=== PATIENT | male | born 1975 | race Caucasian/White ===

== ENCOUNTER 2017-09-07 18:49 | Emergency (ER) | payer OTHER ==
[~2017-09-07] VITALS: Ht 188 cm; Wt 109.0 kg
[2017-09-07] MEDS ORDERED: ACETAMINOPHEN 325 MG TABLET PO ONE (20:00)
[2017-09-07] MEDS ORDERED: PERTUSS(ACELL),DIPH,TET VAC/PF 0.5 ML VIAL IM ONE (20:15)
[2017-09-07] MEDS ORDERED: BACITRACIN 0.9 GM PACKET OINTMENT TP ONE (21:30)
[2017-09-07 21:33] VITALS: BP 142/87
== END 2017-09-07 21:35 | disposition home or self-care (01) ==
LOC: EMS 18:49
DX: S01.01XA Laceration without foreign body of scalp, initial encounter (principal); F17.210 Nicotine dependence, cigarettes, uncomplicated; W22.8XXA Striking against or struck by other objects, initial encounter; Y93.89 Activity, other specified; Y92.89 Other specified places as the place of occurrence of the external cause; Y99.8 Other external cause status
CPT/HCPCS: 12001; 90471; 90715; 99283

== ENCOUNTER 2019-05-08 08:26 | Emergency (ER) | payer OTHER ==
[~2019-05-08] VITALS: Ht 193 cm; Wt 109.0 kg
[2019-05-08] MEDS ORDERED: DIAZEPAM 5 MG/ML 2 ML SYRINGE IM ONE (09:30)
[2019-05-08] MEDS ORDERED: KETOROLAC TROMETHAMINE 30 MG/ML VIAL IM ONE (09:30)
[2019-05-08 10:49] LABS: BASOPHILS % (AUTO) 0.5 % (0.0-2.0); EOSINOPHILS % (AUTO) 0.2 % (1.0-6.0); HEMATOCRIT 44.2 % (41-53); LYMPHOCYTES # (AUTO) 0.7 K/uL (1.0-4.8); LYMPHOCYTES % (AUTO) 6.1 % (22.0-44.0); MEAN CORPUSCULAR HEMOGLOBIN 30.2 pg (26.0-34.0); MEAN CORPUSCULAR HGB CONC 33.9 G/dL (31.0-37.0); MEAN CORPUSCULAR VOLUME 89 fL (80-100); MONOCYTES # (AUTO) 0.7 K/uL (0.1-1.0); MONOCYTES % (AUTO) 5.7 % (2.0-9.0); NEUTROPHILS # (AUTO) 10.2 K/uL (1.8-7.7); PLATELET COUNT (AUTO) 178 K/uL (150-450); RED BLOOD CELL COUNT(AUTO) 4.96 MIL/uL (4.50-5.90); RED CELL DISTRIBUTION WIDTH 13.9 % (11.5-14.5)
[2019-05-08 10:52] LABS: NEUTROPHILS % (AUTO) 87.5 % (40.0-70.0)
[2019-05-08 11:15] LABS: B-TYPE NATRIURETIC PEPTIDE 13 pg/mL (0-100)
[2019-05-08 11:25] LABS: D-DIMER 2.17 mg/L FEU (0.00-0.50); PROTHROMBIN TIME 10.6 SEC (9.4-11.6)
[2019-05-08 11:27] LABS: ALANINE AMINOTRANSFERASE 18 U/L (12-78); ALBUMIN 4.1 g/dL (3.4-5.0); ALKALINE PHOSPHATASE 85 U/L (46-116); ANION GAP 7 mmol/L (8-16); ASPARTATE AMINOTRANSFERASE 26 U/L (15-37); BILIRUBIN,TOTAL 0.9 mg/dL (0.1-1.0); CALCIUM, TOTAL 8.9 mg/dL (8.8-10.5); CARBON DIOXIDE 29 mmol/L (22-29); CHLORIDE 103 mmol/L (98-107); CREATINE KINASE, TOTAL ONLY 236 U/L (39-308); CREATININE 1.27 mg/dL (0.60-1.30); GLOMERULAR FILTR. RATE CALC > 60 mL/min (>60); GLUCOSE,RANDOM 130 mg/dL (70-110); POTASSIUM 2.7 mmol/L (3.5-5.1); SODIUM SERUM 139 mmol/L (136-145); TOTAL PROTEIN, SERUM 7.2 g/dL (6.4-8.2); UREA NITROGEN, BLOOD 12 mg/dL (7-18)
[2019-05-08] MEDS ORDERED: POTASSIUM CHL 10 MEQ/WATER 50 ML IV PRN (11:45)
[2019-05-08] MEDS ORDERED: SODIUM CHLORIDE 0.9% 100 ML ONE (12:00)
[2019-05-08] MEDS ORDERED: IOVERSOL 350 MG/ML 100 ML VIAL ONE (12:01)
[2019-05-08] MEDS ORDERED: MORPHINE SULFATE 4 MG/ML SYRINGE IVP ONE (13:15)
[2019-05-08] MEDS ORDERED: ESMOLOL HCL 2500 MG/NACL 250 ML IV PRN (13:15)
[2019-05-08] MEDS ORDERED: DEXTROSE 5% IV PRN (13:45)
[2019-05-08] MEDS ORDERED: NITROPRUSSIDE SODIUM IV PRN (13:45)
[2019-05-08] MEDS ORDERED: WATER IV PRN (13:45)
[2019-05-08] MEDS ORDERED: SODIUM CHLORIDE 0.9% 250 ML IV ONE (13:56)
[2019-05-08 15:23] VITALS: BP 112/66
== END 2019-05-08 16:44 | disposition short-term general hospital (02) ==
LOC: EMS 08:29
DX: I71.02 Dissection of abdominal aorta (principal); I71.01 Dissection of thoracic aorta; E87.6 Hypokalemia; R07.9 Chest pain, unspecified; M54.5 Low back pain; I10 Essential (primary) hypertension; F17.210 Nicotine dependence, cigarettes, uncomplicated
CPT/HCPCS: 36415; 71045; 71260; 74177; 80053; 82550; 83880; 84484; 85025; 85379; 85610; 85730; 93005; 96365; 96366; 96368; 96372; 96375; 99291; J1885 ×2; J2270; J3480; J3490; J7050 ×2; J7060; Q9967; 72193; 74160

== ENCOUNTER 2020-03-07 13:24 | Emergency (ER) | payer SELFPAY ==
[~2020-03-07] VITALS: Ht 188 cm; Wt 109.1 kg
[2020-03-07] MEDS ORDERED: CARV25 PO (13:26)
[2020-03-07] MEDS ORDERED: CLON1PAT13 TD (13:26)
[2020-03-07] MEDS ORDERED: ASPI-728 PO (13:26)
[2020-03-07] MEDS ORDERED: FOLI0.4T92 PO (13:26)
[2020-03-07] MEDS ORDERED: AMLO-258 PO (13:26)
[2020-03-07 13:31] VITALS: BP 181/122
[2020-03-07] MEDS ORDERED: IBUPROFEN 800 MG TABLET PO ONE (14:00)
== END 2020-03-07 15:31 | disposition home or self-care (01) ==
LOC: EMS 13:27
DX: S80.01XA Contusion of right knee, initial encounter (principal); F17.210 Nicotine dependence, cigarettes, uncomplicated; I10 Essential (primary) hypertension; Z79.82 Long term (current) use of aspirin; V49.9XXA Car occupant (driver) (passenger) injured in unspecified traffic accident, initial encounter; Y93.89 Activity, other specified; Y92.89 Other specified places as the place of occurrence of the external cause; Y99.8 Other external cause status
CPT/HCPCS: 29505; 99406

== ENCOUNTER 2020-05-05 17:48 | Observation (INO) | payer OTHER ==
[~2020-05-05] VITALS: Ht 185.4 cm; Wt 102.5 kg
[~2020-05-05 17:48] MED LIST: AMLO-258 PO; ASPI-728 PO; CARV25 PO; CLON1PAT13 TD; FOLI0.4T92 PO
[2020-05-05] MEDS ORDERED: CloNIDine HCL 0.1 MG TABLET PO ONE (18:30)
[2020-05-05] MEDS ORDERED: AmLODIPine BESYLATE 5 MG TABLET PO ONE (18:30)
[2020-05-05 18:50] LABS: BASOPHILS % (AUTO) 0.8 % (0.0-2.0); EOSINOPHILS % (AUTO) 1.8 % (1.0-6.0); HEMATOCRIT 44.3 % (41-53); LYMPHOCYTES # (AUTO) 1.6 K/uL (1.0-4.8); LYMPHOCYTES % (AUTO) 17.9 % (22.0-44.0); MEAN CORPUSCULAR HEMOGLOBIN 30.3 pg (26.0-34.0); MEAN CORPUSCULAR HGB CONC 33.9 G/dL (31.0-37.0); MEAN CORPUSCULAR VOLUME 90 fL (80-100); MONOCYTES # (AUTO) 0.7 K/uL (0.1-1.0); MONOCYTES % (AUTO) 7.5 % (2.0-9.0); NEUTROPHILS # (AUTO) 6.4 K/uL (1.8-7.7); PLATELET COUNT (AUTO) 218 K/uL (150-450); RED BLOOD CELL COUNT(AUTO) 4.95 MIL/uL (4.50-5.90); RED CELL DISTRIBUTION WIDTH 13.5 % (11.5-14.5)
[2020-05-05 19:05] LABS: ANION GAP 10 mmol/L (8-16); CALCIUM, TOTAL 8.9 mg/dL (8.8-10.5); CARBON DIOXIDE 28 mmol/L (22-29); CHLORIDE 102 mmol/L (98-107); CREATININE 1.19 mg/dL (0.60-1.30); GLOMERULAR FILTR. RATE CALC > 60 mL/min (>60); GLUCOSE,RANDOM 106 mg/dL (70-110); POTASSIUM 3.3 mmol/L (3.5-5.1); PROTHROMBIN TIME 10.3 SEC (9.4-11.6); SODIUM SERUM 140 mmol/L (136-145); UREA NITROGEN, BLOOD 8 mg/dL (7-18)
[2020-05-05 19:11] LABS: ALANINE AMINOTRANSFERASE 24 U/L (12-78); ALBUMIN 3.3 g/dL (3.4-5.0); ALKALINE PHOSPHATASE 95 U/L (46-116); ASPARTATE AMINOTRANSFERASE 25 U/L (15-37); BILIRUBIN,TOTAL 0.2 mg/dL (0.1-1.0); TOTAL PROTEIN, SERUM 6.4 g/dL (6.4-8.2)
[2020-05-05 19:28] LABS: APPEARANCE,URINE CLEAR (CLEAR); BILIRUBIN,URINE NEGATIVE (NEGATIVE); GLUCOSE, URINE (UA) NEGATIVE (NEGATIVE); KETONES,URINE NEGATIVE (NEGATIVE); LEUKOCYTE ESTERASE ,URINE NEGATIVE (NEGATIVE); NITRATE,URINE NEGATIVE (NEGATIVE); OCCULT BLOOD,URINE NEGATIVE (NEGATIVE); PH,URINE 6.5 (5.0-8.0); PROTEIN,URINE POS 1+ (NEGATIVE)
[2020-05-05 19:34] LABS: AMPHET/METH SCREEN,URINE POSITIVE (NEGATIVE); BARBITURATE SCREEN, URINE NEGATIVE (NEGATIVE); BENZODIAZEPINES SCREEN,URINE NEGATIVE (NEGATIVE); CANNABINOID SCREEN,URINE NEGATIVE (NEGATIVE); COCAINE SCREEN,URINE NEGATIVE (NEGATIVE); METHADONE SCREEN, URINE NEGATIVE (NEGATIVE); OPIATE SCREEN,URINE NEGATIVE (NEGATIVE)
[2020-05-05 19:35] LABS: PHENCYCLIDINE SCREEN,URINE NEGATIVE (NEGATIVE)
[2020-05-05] MEDS ORDERED: POTASSIUM CHLORIDE 20 MEQ ER TABLET PO ONE (19:45)
[2020-05-05] MEDS ORDERED: LORazepam 1 MG TABLET PO ONE (19:45)
[2020-05-05] MEDS ORDERED: ONDANSETRON HCL 4 MG/2 ML VIAL IVP PRN (20:15)
[2020-05-05] MEDS ORDERED: MECLIZINE HCL 12.5 MG TABLET PO PRN (20:15)
[2020-05-05] MEDS ORDERED: ACETAMINOPHEN 325 MG TABLET PO PRN (20:15)
[2020-05-05] MEDS ORDERED: HydrALAZINE HCL 20 MG/ML VIAL IVP ONE (20:15)
[2020-05-05] MEDS ORDERED: LORazepam 2 MG TABLET PO PRN (20:45)
[2020-05-05] MEDS ORDERED: HydrALAZINE HCL 20 MG/ML VIAL IVP PRN (20:45)
[2020-05-05 21:00] VITALS: BP 184/98
[2020-05-05] MEDS: THIAMINE 100 MG TABLET PO SCH (22:33)
[2020-05-05 22:35] VITALS: BP 160/91
[2020-05-06] MEDS: HEPARIN SODIUM,PORCINE 5,000 UNITS/ML VIAL SQ SCH ×3 (00:08→16:32)
[2020-05-06 00:13] VITALS: BP 152/106
[2020-05-06 05:00] VITALS: BP 169/102
[2020-05-06] MEDS ORDERED: LORazepam 2 MG TABLET PO PRN (07:00)
[2020-05-06] MEDS: ASPIRIN 81 MG CHEWABLE TABLET PO SCH (08:06)
[2020-05-06] MEDS: FOLIC ACID 0.4 MG TABLET PO SCH (08:06)
[2020-05-06] MEDS: LORazepam 2 MG TABLET PO SCH ×4 (08:06→20:28)
[2020-05-06] MEDS: VITAMIN B COMP/VIT C/FOLIC ACID CAPSULE PO SCH (08:07)
[2020-05-06] MEDS: AmLODIPine BESYLATE 10 MG TABLET PO SCH (08:07)
[2020-05-06] MEDS: CARVEDILOL 12.5 MG TABLET PO SCH (08:07)
[2020-05-06 08:15] VITALS: BP 165/104
[2020-05-06] MEDS ORDERED: DENTURE ADHESIVE 68 GM CREAM DT PRN (08:15)
[2020-05-06 12:00] VITALS: BP 139/85
[2020-05-06] MEDS: THIAMINE 100 MG TABLET PO SCH (12:41)
[2020-05-06 16:00] VITALS: BP 151/101
[2020-05-06] MEDS: MULTIVITAMINS, THERAPEUTIC TABLET PO SCH (16:32)
[2020-05-06 19:40] VITALS: BP 136/87
[2020-05-06] MEDS: HydrALAZINE HCL 25 MG TABLET PO SCH (20:28)
[2020-05-07] MEDS: HEPARIN SODIUM,PORCINE 5,000 UNITS/ML VIAL SQ SCH ×3 (00:50→16:00)
[2020-05-07 00:54] VITALS: BP 145/92
[2020-05-07 04:55] VITALS: BP 152/103
[2020-05-07 08:55] VITALS: BP 152/107
[2020-05-07] MEDS: ASPIRIN 81 MG CHEWABLE TABLET PO SCH (09:08)
[2020-05-07] MEDS: LORazepam 2 MG TABLET PO SCH ×3 (09:08→16:00)
[2020-05-07] MEDS: HydrALAZINE HCL 25 MG TABLET PO SCH (09:08)
[2020-05-07] MEDS: VITAMIN B COMP/VIT C/FOLIC ACID CAPSULE PO SCH (09:09)
[2020-05-07] MEDS: CARVEDILOL 12.5 MG TABLET PO SCH (09:09)
[2020-05-07] MEDS: AmLODIPine BESYLATE 10 MG TABLET PO SCH (09:09)
[2020-05-07] MEDS: MULTIVITAMINS, THERAPEUTIC TABLET PO SCH (09:10)
[2020-05-07] MEDS: THIAMINE 100 MG TABLET PO SCH (09:10)
[2020-05-07 09:26] LABS: BASOPHILS % (AUTO) 1.1 % (0.0-2.0); EOSINOPHILS % (AUTO) 2.3 % (1.0-6.0); HEMATOCRIT 46.9 % (41-53); HEMOGLOBIN 16.1 g/dL (13.5-17.5); LYMPHOCYTES # (AUTO) 1.6 K/uL (1.0-4.8); LYMPHOCYTES % (AUTO) 19.1 % (22.0-44.0); MEAN CORPUSCULAR HGB CONC 34.3 G/dL (31.0-37.0); MEAN CORPUSCULAR VOLUME 90 fL (80-100); MONOCYTES # (AUTO) 0.7 K/uL (0.1-1.0); MONOCYTES % (AUTO) 8.4 % (2.0-9.0); NEUTROPHILS # (AUTO) 5.9 K/uL (1.8-7.7); NEUTROPHILS % (AUTO) 69.1 % (40.0-70.0); PLATELET COUNT (AUTO) 227 K/uL (150-450); RED BLOOD CELL COUNT(AUTO) 5.18 MIL/uL (4.50-5.90); RED CELL DISTRIBUTION WIDTH 13.9 % (11.5-14.5)
[2020-05-07 09:53] LABS: ALANINE AMINOTRANSFERASE 23 U/L (12-78); ALBUMIN 3.1 g/dL (3.4-5.0); ALKALINE PHOSPHATASE 92 U/L (46-116); ANION GAP 6 mmol/L (8-16); ASPARTATE AMINOTRANSFERASE 19 U/L (15-37); BILIRUBIN,TOTAL 0.4 mg/dL (0.1-1.0); CALCIUM, TOTAL 8.9 mg/dL (8.8-10.5); CARBON DIOXIDE 32 mmol/L (22-29); CHLORIDE 104 mmol/L (98-107); CHOL/HDL RATIO 2.9 (4.2-7.3); CHOLESTEROL 166 mg/dL (131-200); CREATININE 1.19 mg/dL (0.60-1.30); FREE T4 (FREE THYROXINE) 0.93 ng/dL (0.76-1.46); GLOMERULAR FILTR. RATE CALC > 60 mL/min (>60); GLUCOSE,RANDOM 103 mg/dL (70-110); HDL CHOLESTEROL 58 mg/dL (40-60); LDL CHOL (CALC.) 96 mg/dL (0-130); POTASSIUM 3.8 mmol/L (3.5-5.1); SODIUM SERUM 142 mmol/L (136-145); THYROID STIMULATING HORMONE 2.71 uIU/mL (0.36-3.74); TOTAL PROTEIN, SERUM 6.4 g/dL (6.4-8.2); TRIGLYCERIDES 60 mg/dL (15-150); UREA NITROGEN, BLOOD 11 mg/dL (7-18)
[2020-05-07] MEDS: FOLIC ACID 0.4 MG TABLET PO SCH (10:41)
[2020-05-07 11:42] VITALS: BP 123/79
[2020-05-07] MEDS ORDERED: MULT-1239 PO (15:36)
[2020-05-07] MEDS ORDERED: THIA100T80 PO (15:36)
[2020-05-07] MEDS ORDERED: HYDR25TA84 PO (15:36)
[2020-05-07] MEDS ORDERED: ACET-2865 PO (15:38)
[2020-05-07 16:08] VITALS: BP 151/85
[2020-05-08] MEDS ORDERED: LORazepam 1 MG TABLET PO PRN (07:00)
[2020-05-08] MEDS ORDERED: LORazepam 1 MG TABLET PO SCH (09:00)
[2020-05-09] MEDS ORDERED: LORazepam 1 MG TABLET PO PRN (07:00)
[2020-05-12] MEDS ORDERED: CloNIDine 0.2 MG/24 HOUR PATCH TD SCH (09:00)
== END 2020-05-07 17:20 | disposition home or self-care (01) ==
LOC: EMS 17:53 → INTOOBSV 20:14 → 5S 20:14 → UNDOADMIN 20:30 → 5S 20:30
PROVIDERS: ADMIT Internal Medicine; ATTEND Internal Medicine
DX: R42 Dizziness and giddiness (principal); I10 Essential (primary) hypertension; F15.10 Other stimulant abuse, uncomplicated; F10.20 Alcohol dependence, uncomplicated; F17.200 Nicotine dependence, unspecified, uncomplicated; Z86.79 Personal history of other diseases of the circulatory system; Z91.14 Patient's other noncompliance with medication regimen; Z91.19 Patient's noncompliance with other medical treatment and regimen; Y90.9 Presence of alcohol in blood, level not specified
CPT/HCPCS: 36415 ×3; 70450; 71045; 80053 ×2; 80061; 80307; 84439; 84443; 84484 ×2; 85025 ×2; 85610; 85730; 93005; 93306; 93880; 96372 ×2; 96374; 96376; 99219; 99285; J0360 ×2; J1644 ×3; G0378

== ENCOUNTER 2021-06-20 07:59 | Emergency (ER) | payer OTHER ==
[~2021-06-20] VITALS: Ht 188 cm; Wt 113.6 kg
[~2021-06-20 07:59] MED LIST changes: +ACET-2247 PO; +ASPI-1450 PO; -ASPI-728 PO; +FOLI0.4T6 PO; -FOLI0.4T92 PO; +HYDR25TA84 PO; +MULT-1239 PO; +THIA100T80 PO
[2021-06-20] MEDS ORDERED: ASPIRIN 81 MG CHEWABLE TABLET PO ONE (08:15)
[2021-06-20] MEDS ORDERED: MORPHINE SULFATE 4 MG/ML SYRINGE IVP ONE (08:30)
[2021-06-20] MEDS ORDERED: ONDANSETRON HCL 4 MG/2 ML VIAL IVP ONE (08:30)
[2021-06-20 08:35] LABS: BASOPHILS % (AUTO) 0.9 % (0.0-2.0); EOSINOPHILS % (AUTO) 2.4 % (1.0-6.0); HEMOGLOBIN 14.2 g/dL (13.5-17.5); LYMPHOCYTES # (AUTO) 2.2 K/uL (1.0-4.8); LYMPHOCYTES % (AUTO) 24.4 % (22.0-44.0); MEAN CORPUSCULAR HEMOGLOBIN 31.1 pg (26.0-34.0); MEAN CORPUSCULAR HGB CONC 33.8 G/dL (31.0-37.0); MEAN CORPUSCULAR VOLUME 92 fL (80-100); MONOCYTES % (AUTO) 10.6 % (2.0-9.0); NEUTROPHILS # (AUTO) 5.5 K/uL (1.8-7.7); NEUTROPHILS % (AUTO) 61.7 % (40.0-70.0); PLATELET COUNT (AUTO) 227 K/uL (150-450); RED BLOOD CELL COUNT(AUTO) 4.56 MIL/uL (4.50-5.90); RED CELL DISTRIBUTION WIDTH 13.5 % (11.5-14.5)
[2021-06-20 08:45] LABS: CALCIUM, TOTAL 8.1 mg/dL (8.8-10.5); CREATININE 1.38 mg/dL (0.60-1.30)
[2021-06-20 08:46] LABS: PROTHROMBIN TIME 10.9 SEC (9.4-11.6)
[2021-06-20 08:54] LABS: BILIRUBIN,TOTAL 0.3 mg/dL (0.1-1.0); TOTAL PROTEIN, SERUM 6.2 g/dL (6.4-8.2)
[2021-06-20 09:19] LABS: COVID AG,FIA SOURCE NASOPHARYNGEAL
[2021-06-20] MEDS ORDERED: ESMOLOL HCL 2,500 MG/NACL 250 ML IV PRN (10:15)
[2021-06-20 11:56] LABS: ABG A-A DIFF O2 24.5 mmHg (10-20.0); ABG BASE EXCESS -3.6 mmol/L (-2.0-3.0); ABG CARBOXYHEMOGLOBIN 2.9 % (0.0-1.5); ABG HCO3 21.9 mmol/L (22.0-26.0); ABG METHEMOGLOBIN 0.2 % (0.0-1.5); ABG OXYGEN CONTENT 19.3 mL/dL (15.0-23.0); ABG OXYGEN SATURATION 97.2 % (95.0-98.0); ABG OXYHEMOGLOBIN 94.2 % (94.0-100.0); ABG PCO2 39 mmHg (35-45); ABG PH 7.367 (7.35-7.450); ABG TOTAL HEMOGLOBIN 14.5 G/dL (12.0-18.0); O2 DEVICE,BLOOD GAS CANNULA (ROOM AIR); PO2, ARTERIAL BG 100.5 mmHg (88.0-96.0); SITE, BLOOD GAS LFT RADIAL; SOURCE, BLOOD GAS ARTERIAL; TEMPERATURE, FAHRENHEIT, BG 98.6 FAHREN (96.0-98.6)
[2021-06-20] MEDS ORDERED: SODIUM CHLORIDE 0.9% 1,000 ML IV ONE (13:15)
[2021-06-20 16:10] VITALS: BP 123/53
== END 2021-06-20 16:26 | disposition short-term general hospital (02) ==
LOC: EMS 08:02
DX: I71.01 Dissection of thoracic aorta (principal); I10 Essential (primary) hypertension; Z20.822 Contact with and (suspected) exposure to COVID-19
CPT/HCPCS: 36415; 36600; 71045; 71275; 74160; 80053; 82550; 82805; 83605; 83880; 84484; 85025; 85610; 85730; 87426; 93005; 96361; 96374; 96375; 99291; 99292; J2270; J2405

== ENCOUNTER 2023-08-23 17:55 | Emergency (ER) | payer OTHER ==
[~2023-08-23] VITALS: Ht 184.2 cm; Wt 113.6 kg
[~2023-08-23 17:55] MED LIST changes: -ACET-2247 PO; -HYDR25TA84 PO; -MULT-1239 PO; -THIA100T80 PO
[2023-08-23] MEDS ORDERED: FURO80TA3 PO (18:43)
[2023-08-23] MEDS ORDERED: VALS160T31 PO (18:43)
[2023-08-23] MEDS ORDERED: ONDANSETRON HCL 4 MG/2 ML VIAL IVP ONE (18:45)
[2023-08-23] MEDS ORDERED: MORPHINE SULFATE 4 MG/ML SYRINGE IVP ONE (18:45)
[2023-08-23] MEDS ORDERED: HydrALAZINE HCL 20 MG/ML VIAL ONE (18:50)
[2023-08-23 18:54] LABS: EOSINOPHILS % (AUTO) 1.2 % (1.0-6.0); HEMATOCRIT 44.9 % (41-53); HEMOGLOBIN 15.6 g/dL (13.5-17.5); LYMPHOCYTES % (AUTO) 6.8 % (22.0-44.0); MEAN CORPUSCULAR HEMOGLOBIN 30.9 pg (26.0-34.0); MEAN CORPUSCULAR HGB CONC 34.7 G/dL (31.0-37.0); MEAN CORPUSCULAR VOLUME 89 fL (80-100); MONOCYTES # (AUTO) 0.8 K/uL (0.1-1.0); MONOCYTES % (AUTO) 5.9 % (2.0-9.0); NEUTROPHILS # (AUTO) 12.2 K/uL (1.8-7.7); NEUTROPHILS % (AUTO) 85.1 % (40.0-70.0); PLATELET COUNT (AUTO) 175 K/uL (150-450); RED BLOOD CELL COUNT(AUTO) 5.04 MIL/uL (4.50-5.90); RED CELL DISTRIBUTION WIDTH 13.8 % (11.5-14.5); WHITE BLOOD COUNT (AUTO) 14.3 K/uL (4.5-11.0)
[2023-08-23] MEDS ORDERED: IOHEXOL 350 MG/ML 100 ML VIAL ONE ×2 (18:58)
[2023-08-23] MEDS ORDERED: SODIUM CHLORIDE 0.9% 100 ML ONE (18:58)
[2023-08-23] MEDS ORDERED: HydrALAZINE HCL 20 MG/ML VIAL IVP ONE (19:00)
[2023-08-23 19:03] LABS: CALCIUM, TOTAL 8.6 mg/dL (8.8-10.5); CREATININE 1.28 mg/dL (0.60-1.30)
[2023-08-23 19:10] LABS: BILIRUBIN,TOTAL 0.9 mg/dL (0.1-1.0); TOTAL PROTEIN, SERUM 7.7 g/dL (6.4-8.2)
[2023-08-23 19:37] LABS: TROPONIN I-HIGH SENSITIVITY 47 ng/L (<76)
[2023-08-23 19:47] LABS: COVID AG,FIA SOURCE NASAL SWAB
[2023-08-23 20:11] LABS: SARS-COV2 (COVID) ANTIGEN,FIA Negative (Negative)
[2023-08-23] MEDS ORDERED: NiCARDipine HCL 25 MG in SODIUM CHLORIDE 0.9% 240 ML IV PRN (20:30)
[2023-08-23 21:14] LABS: APPEARANCE,URINE CLEAR (CLEAR); BILIRUBIN,URINE NEGATIVE (NEGATIVE); COLOR,URINE LIGHT YELLOW (YELLOW); GLUCOSE, URINE (UA) NEGATIVE (NEGATIVE); KETONES,URINE NEGATIVE (NEGATIVE); LEUKOCYTE ESTERASE ,URINE NEGATIVE (NEGATIVE); NITRATE,URINE NEGATIVE (NEGATIVE); OCCULT BLOOD,URINE NEGATIVE (NEGATIVE); PROTEIN,URINE 30-70 mg/dL (NEGATIVE); UROBILINOGEN,URINE <=1.0 mg/dL (<=1.0)
[2023-08-23 21:17] LABS: SPECIFIC GRAVITIY, URINE > 1.050 (1.003-1.030)
[2023-08-23 22:03] VITALS: BP 195/124; PULSE 77; RESP 16; TEMP 97.8
== END 2023-08-23 23:29 | disposition short-term general hospital (02) ==
LOC: EMS 17:56
DX: I71.02 Dissection of abdominal aorta (principal); K43.9 Ventral hernia without obstruction or gangrene; I10 Essential (primary) hypertension; F17.210 Nicotine dependence, cigarettes, uncomplicated; Z86.79 Personal history of other diseases of the circulatory system; Z20.822 Contact with and (suspected) exposure to COVID-19
CPT/HCPCS: 99291; 71260; 96365; 96375; 87426; 80053; 81003; 82550; 83690; 83880; 84484; 85025; 36415; 72193; 74160; 93005; J0360; J2270; J3490; J2405; Q9967; J7050 ×2